=== PATIENT | female | born 1945 | race Caucasian/White ===

== ENCOUNTER 2017-07-25 22:44 | Emergency (ER) | payer MEDICARE, OTHER ==
[2017-07-25 22:44] VITALS: BMI 29.2
--- NOTE | 2017-07-25 23:02 | C.PDOC ---
History Of Present Illness 71 year old female with PMHx of HTN, HLD presents to the ED c/o abdominal pain that started yesterday. Patient reports she did not take any medication for her current symptoms. Patient denies nausea, vomit, diarrhea, CP, SOB. Time Seen by Provider: 07/25/17 22:54 Chief Complaint (Nursing): Abdominal Pain History Per: Patient History/Exam Limitations: no limitations Onset/Duration Of Symptoms: Days Current Symptoms Are (Timing): Still Present Context: Food Location Of Pain/Discomfort: Epigastric Radiation Of Pain To:: None Quality Of Discomfort: "Pain" Associated Symptoms: denies: Nausea, Vomiting, Diarrhea, Loss Of Appetite Exacerbating Factors: None Alleviating Factors: None Recent travel outside of the [place]: No Additional History Per: Patient Abnormal Vaginal Bleeding: No Past Medical History Reviewed: Historical Data, Nursing Documentation, Vital Signs Vital Signs: Last Vital Signs Temp 99.5 F 07/25/17 22:46 Pulse 101 H 07/25/17 23:15 Resp 16 07/25/17 23:15 BP 128/81 07/25/17 23:15 Pulse Ox 100 07/26/17 00:18 - Medical History PMH: HTN, Hypercholesterolemia Surgical History: No Surg Hx - [facility] ENDOSC POLYPECTOMY OF LG INTEST (09/07/12) Family History: States: Unknown Family Hx - Social History Hx Alcohol Use: No Hx Substance Use: No - Immunization History Hx Tetanus Toxoid Vaccination: No Hx Influenza Vaccination: No Hx Pneumococcal Vaccination: No Review Of Systems Constitutional: Negative for: Fever, Chills Cardiovascular: Negative for: Chest Pain Respiratory: Negative for: Shortness of Breath Gastrointestinal: Positive for: Abdominal Pain. Negative for: Nausea, Vomiting , Diarrhea, Constipation Genitourinary: Negative for: Dysuria Musculoskeletal: Negative for: Back Pain Skin: Negative for: Rash Physical Exam - Physical Exam Appears: Non-toxic, No Acute Distress Skin: Normal Color, Warm, Dry Head: Atraumatic, Normacephalic Eye(s): bilateral: Normal Inspection Oral Mucosa: Moist Neck: Normal ROM, Supple Chest: Symmetrical Cardiovascular: Rhythm Regular, No Murmur Respiratory: Normal Breath Sounds, No Rales, No Rhonchi, No Wheezing Gastrointestinal/Abdominal: Soft, Tenderness (epigastrum), No Guarding, No Rebound Extremity: Normal ROM, No Tenderness, No Swelling Pulses: Left Dorsalis Pedis: Normal, Right Dorsalis Pedis: Normal Neurological/Psych: Oriented x3 Gait: Steady ED Course And Treatment - Laboratory Results Result Diagrams: 07/25/17 23:10 07/25/17 23:10 ECG: Interpreted By Me, Viewed By Me ECG Rhythm: Sinus Tachycardia, R BBB (incomplete), Nonspecific Changes (T wave changes) Rate From EC (BPM) O2 Sat by Pulse Oximetry: 100 (On RA) Pulse Ox Interpretation: Normal Medical Decision Making Medical Decision Making: Assessment: Abdominal pain Plan: * CT abd/pelvis * EKG * Labs * Morphine 2 mg IVP * Pepcid 20 mg IVP * Zofran 4 mg IVP * UA Disposition - Disposition Disposition Time: 00:56 Condition: STABLE Forms: [facility] (Chinese) - Clinical Impression Clinical Impression: Abdominal pain - Scribe Statement The provider has reviewed the documentation as recorded by the Scribe Tino Baker All medical record entries made by the Scribe were at my direction and personally dictated by me. I have reviewed the chart and agree that the record accurately reflects my personal performance of the history, physical exam, medical decision making, and the department course for this patient. I have also personally directed, reviewed, and agree with the discharge instructions and disposition. Physician Patient Turnover Patient Signed Over To: Aleida Navarro Handoff Comments: pending ct scan, reevaluatin and disposition
[2017-07-25 23:14] LABS: BASO % 0.5 % (0.0-2.0); EOS % 0.2 % (0.0-4.0); LYMPH # 1.2 K/uL (1.0-4.3); LYMPH % 18.6 % (20.0-40.0); MEAN CORPUSCULAR HEMOGLOBIN 27.9 pg (27.0-31.0); MEAN PLATELET VOLUME 7.7 fL (7.2-11.7); MONO # 0.6 K/uL (0.0-0.8); MONO % 8.4 % (0.0-10.0); NEUT # 4.8 K/uL (1.8-7.0); NEUT % 72.3 % (50.0-75.0); RBC 4.66 Mil/uL (3.80-5.20); RED CELL DISTRIBUTION WIDTH 13.3 % (11.5-14.5); WHITE BLOOD COUNT 6.6 K/uL (4.8-10.8)
[2017-07-25 23:15] LABS: MEAN CELL VOLUME 82.1 fL (81.0-99.0)
[2017-07-25] MEDS ORDERED: Morphine 4 MG/ML VIAL ONE (23:17)
[2017-07-25 23:21] LABS: SQUAMOUS EPITHIAL 3 /hpf (0-5); URINE BILIRUBIN NEGATIVE (NEGATIVE); URINE BLOOD NEGATIVE (NEGATIVE); URINE CLARITY Hazy (Clear); URINE COLOR Yellow (YELLOW); URINE GLUCOSE (UA) NORMAL (Normal); URINE LEUKOCYTE ESTERASE 3+ Leu/uL (Negative); URINE PROTEIN 1+ mg/dL (NEGATIVE); URINE UROBILINOGEN NORMAL mg/dL (0.2-1.0)
[2017-07-25 23:29] LABS: ALB/GLOB RATIO 1.2 (1.0-2.1); ALBUMIN 4.4 g/dL (3.5-5.0); ALT/SGPT 26 U/L (9-52); AST/SGOT 25 U/L (14-36); BLOOD UREA NITROGEN 13 mg/dL (7-17); CALCIUM 8.3 mg/dl (8.6-10.4); GFR AFRICAN-AMERICAN > 60; GFR NON-AFRICAN AMERICAN > 60; LIPASE 137 U/L (23-300)
[2017-07-26 01:27] VITALS: BP 133/71; PULSE 90; RESP 20; TEMP 98.4; O2SAT 99
--- NOTE | 2017-07-26 14:11 | CT ---
PROCEDURE: CT scan abdomen and pelvis dated 07/26/2017 HISTORY: Abdominal pain. COMPARISON: Comparison made with CT abdomen pelvis 09/05/2012 TECHNIQUE: Contiguous axial images of the abdomen and pelvis performed following intravenous injection of approximately 100 cc Visipaque 320 contrast material. 2Dsagittal and coronal reformats generated. This CT exam was performed using one or more of the following dose reduction techniques: Automated exposure control, adjustment of the mA and/or kV according to patient size, and/or use of iterative reconstruction technique. Contrast dose: 100 cc Visipaque 320 Radiation dose: Total exam DLP = 491.54 mGy-cm. FINDINGS: LOWER THORAX: Mild passive atelectasis both posterior lower lung zones. No effusion or basilar pneumothorax. Heart size is mildly enlarged. No significant pericardial effusion. Tiny hiatal hernia. In the LIVER: Liver exhibits normal size measuring nearly 616 cm in CC dimension. Moderate fatty hepatic infiltration. No obvious hepatic mass collection or calcification. Portal and splenic veins are opacified. GALLBLADDER AND BILE DUCTS: Gallbladder is physiologically distended. No evidence of intraluminal gallbladder calculi. PANCREAS: The pancreas is mildly atrophic and fatty replaced. SPLEEN: Unremarkable. No splenomegaly. ADRENALS: Slightly nodular appearing left adrenal gland. KIDNEYS AND URETERS: Kidneys demonstrate symmetric nephrograms. No evidence of nephrolithiasis or hydronephrosis. BLADDER: The urinary bladder is incompletely distended which in part accounts for thick-walled appearance. Possibility of cystitis however must be excluded. Correlation with urinalysis. REPRODUCTIVE: Unremarkable as visualized. APPENDIX: Normal-appearing appendix of best seen on axial image number [id number]. No periappendiceal inflammatory changes. BOWEL: . The evaluation of the bowel is limited due to the lack of oral contrast. Stomach is collapsed. Visualized loops of small bowel exhibit normal contour and caliber. No evidence of acute mechanical small bowel obstruction. . Liquid stool is present within the distal small bowel cecum and ascending colon; rule out diarrheal illness. No definitive evidence of abnormal mural wall thickening. PERITONEUM: Unremarkable. No fluid collection. No free air. Tiny fat containing umbilical hernia. LYMPH NODES: Unremarkable. No enlarged lymph nodes. VASCULATURE: Unremarkable. No aortic aneurysm. BONES: Minor multilevel degenerative spondylosis of the lower thoracic and lumbar spine. Minor chronic anterior stature loss of a few mid-lower thoracic segments. OTHER FINDINGS: None. IMPRESSION: Liquid stool is present within the distal ileum and right colon; rule out diarrheal illness. No evidence of definitive abnormal mural wall thickening. Fatty hepatic infiltration. Preliminary report provided by [facility] radiology service.
== END 2017-07-26 01:27 | disposition home or self-care (01) ==
LOC: C.ER 22:44
DX: N39.0 Urinary tract infection, site not specified (principal); R10.9 Unspecified abdominal pain; I10 Essential (primary) hypertension; E78.00 Pure hypercholesterolemia, unspecified
CPT/HCPCS: 74177; 80053; 81001; 83690; 84484; 85025; 87086; 96365; 96375; 99285; J0696; J2270; J2405